=== PATIENT | male | born 1975 | race Asian ===

== ENCOUNTER 2019-06-06 22:29 | Emergency (ER) | payer OTHER ==
[~2019-06-06] VITALS: Ht 157.5 cm; Wt 61.2 kg
[2019-06-06] MEDS ORDERED: TDAP DIPH,PERTUSS,TET VAC/PF 0.5 ML DISP.SYRIN IM ONE ×2 (22:45→22:52)
--- NOTE | 2019-06-06 22:45 | NUR ---
Patient arrive at the ER with chief compliant of bite from a scorpion. Patient got bitten by scorpion in his bedroom at 2200. Patient complaining of numbess on affected area. Denies any pain. No cardiovascular concern. Respiratory even and non-labored. No GI/ concern.
--- NOTE | 2019-06-06 22:48 | NUR ---
Consent for TDAP obtained from patient.
--- NOTE | 2019-06-06 23:00 | NUR ---
TDAP given to patient on left deltoid area.
--- NOTE | 2019-06-06 23:02 | NUR ---
Washed right foot with Saline and pat dry per Dr. Alex's instructions.
--- NOTE | 2019-06-06 23:12 | NUR ---
Patient complaining of increase numbing on right foot that radiates on his ankle. Dr. Alex on bedside.
--- NOTE | 2019-06-07 01:18 | NUR ---
Dr. Alex on bedside.
--- NOTE | 2019-06-07 02:00 | NUR ---
Patient discharged to home in stable conditon. Written and verbal after care instructions given. Patient verbalizes understanding of instructions. Patient ambulated from the ER with stable gait. All belongings with patient.
[2019-06-07 02:08] VITALS: BP 107/65
== END 2019-06-07 02:00 | disposition home or self-care (01) ==
LOC: ER 22:30
DX: T63.2X1A Toxic effect of venom of scorpion, accidental (unintentional), initial encounter (principal); Z88.2 Allergy status to sulfonamides; Y92.89 Other specified places as the place of occurrence of the external cause
CPT/HCPCS: 90715; A4217; A4663